=== PATIENT | female | born 1990 | race Caucasian/White ===

== ENCOUNTER 2024-07-27 21:25 | Emergency (ER) | payer MEDICAID, SELFPAY ==
--- NOTE | ~2024-07-27 | XR_ITS ---
CLINICAL HISTORY: cough, chest congestion 1 view chest x-ray Comparison: None Findings: No consolidation, pneumothorax, or pleural effusion. Borderline low lung volumes with minimal atelectasis Heart size is normal. No acute fracture. IMPRESSION: No consolidation This document has been electronically signed by: Sb Ramesh MD on 07/27/2024 23:26:48
[2024-07-27 21:56] VITALS: BP 123/80; PULSE 110; RESP 18; TEMP 37.3; BMI 26.5
[2024-07-27 22:18] LABS: Hematocrit 40.7 % (37.0-47.0); Hemoglobin 13.8 g/dl (12.0-16.0); Mean Corpuscular HGB Conc 33.9 g/dl (31.0-35.0); Mean Corpuscular Hemoglobin 28.7 pg (27.0-33.0); Mean Corpuscular Volume 84.6 fL (80.0-98.0); Mean Platelet Volume 10.4 fL (9.4-12.3); Platelet Count 228 X10*3/uL (160-400); Red Blood Count 4.81 X10*6/uL (4.20-5.50); Red Cell Distribution Width 13.2 % (11.0-16.0); White Blood Count 5.4 X10*3/uL (4.8-10.8)
[2024-07-27 22:46] LABS: Alanine Aminotransferase 42 U/L (0-31); Albumin Level 4.2 g/dL (3.5-5.0); Alkaline Phosphatase 72 U/L (39-117); Anion Gap 14 (12-20); Aspartate Amino Transferase 32 U/L (5-31); Bilirubin Total 0.4 mg/dL (0.0-1.0); Blood Urea Nitrogen 10 mg/dL (9-16); Carbon Dioxide 24 mmol/L (22-29); Chloride 102 mmol/L (96-108); Creatinine Clr Calc Pharmacy 77.5; Estimated Glomerular Filt Rate > 60; Glucose Random 85 mg/dL (60-115); Potassium 3.4 mmol/L (3.3-5.1); Sodium 137 mmol/L (135-145); Total Protein 8.2 g/dL (6.5-8.0)
[2024-07-27 22:54] LABS: Influenza A PCR NEGATIVE (Negative); Influenza B PCR POSITIVE (Negative); Resp Syncy Virus RNA Qual PCR NEGATIVE (Negative); SARS COV2 PCR INHOUSE NEGATIVE (Negative)
[2024-07-28 01:40] VITALS: BP 122/80; PULSE 113; RESP 18; TEMP 37.6; O2SAT 97
--- NOTE | 2024-07-28 03:42 | ED_ITS ---
HPI - URI/Sore Throat General Chief Complaint: Upper Respiratory Symptoms Stated Complaint: coughing/felt better yesterday/today worse Time Seen by Provider: 07/28/24 03:19 Source: patient Mode of arrival: ambulatory Limitations: no limitations History of Present Illness ED Provider: HPI Narrative: patient is complaining of nasal congestion sore throat body aches dry cough earache for last 2 days was seen at urgent care center tested negative for flu and COVID comes here staff as she is still feeling sick Related Data Previous Rx's ?Medication ?Instructions ?Recorded codeine 10 mg-guaifenesin 100 mg/5 10 ml PO Q6H PRN cough #237 mL 07/28/24 mL oral liquid Allergies Allergy/AdvReac Type Severity Reaction Status Date / Time No Known Allergies Allergy Verified 07/27/24 21:57 Review of Systems 2 Review of Systems: Yes all other systems are reviewed and are negative [facility] Social History Social History Advance Directives: No Advance Directives Information Provided: Yes Do you have a plan to hurt others: No Plan Physical Exam 2 Vital Signs: Vital Signs: Last Vital Signs Temp 99.7 F 07/28/24 04:27 Pulse 113 H 07/28/24 04:27 Resp 18 07/28/24 04:27 BP 122/80 07/28/24 04:27 Pulse Ox 97 07/28/24 04:27 O2 Del Method Room Air 07/28/24 04:27 BMI result Body Mass Index 26.5 Appearance: Alert. Oriented X3. No acute distress. frequent cough Eyes: no pallor or icterus ENT: Pharynx normal. Oral Mucosa moist Neck: Normal inspection. Neck supple. CVS: Normal heart rate and rhythm. Pulses normal. Respiratory: No respiratory distress. Equal air entry bilateral, no wheezing/rales/rhonchi Abd: soft, not tender Skin: Skin warm and dry. Normal skin color. Normal skin turgor. Extremities: No lower extremity edema, no calf tenderness Neuro: Oriented X 3. Medications Administered Discontinued Medications Generic Name Dose Route Start Last Admin Trade Name Freq PRN Reason Stop Dose Admin Guaifenesin/Codeine Phosphate 10 ml 07/28/24 03:42 07/28/24 03:55 Guaifen/Codeine Sf 200/20/10ml 10 Ml Liquid PO 10 ml Q6H PRN Administration Cough Medical Decision Making Medical Decision Making MDM Narrative: patient's influenza B chest x-ray labs are stable advised supportive treatment Lab Data [facility] Lab Attestation statement: I reviewed the patient's lab results. 07/27/24 22:11 07/27/24 22:11 Labs: Lab Results 07/27/24 07/27/24 Range/Units 02:14 22:11 WBC 5.4 (4.8-10.8) X10*3/uL RBC 4.81 (4.20-5.50) X10*6/uL Hgb 13.8 (12.0-16.0) g/dl Hct 40.7 (37.0-47.0) % MCV 84.6 (80.0-98.0) fL MCH 28.7 (27.0-33.0) pg MCHC 33.9 (31.0-35.0) g/dl RDW 13.2 (11.0-16.0) % Plt Count 228 (160-400) X10*3/uL MPV 10.4 (9.4-12.3) fL Absolute Nucleated RBC 0.000 (0.0-0.012) X10*3/uL Nucleated RBC % (auto) 0.0 (0.0-0.2) /100WBC Sodium 137 (135-145) mmol/L Potassium 3.4 (3.3-5.1) mmol/L Chloride 102 (96-108) mmol/L Carbon Dioxide 24 (22-29) mmol/L Anion Gap 14 (12-20) BUN 10 (9-16) mg/dL Creatinine 0.89 (0.5-1.4) mg/dL Estim Creat Clear Calc 77.5 Estimated GFR > 60 Random Glucose 85 (60-115) mg/dL Calcium 9.0 (8.4-10.2) mg/dL Total Bilirubin 0.4 (0.0-1.0) mg/dL AST 32 H (5-31) U/L ALT 42 H (0-31) U/L Alkaline Phosphatase 72 (39-117) U/L Total Protein 8.2 H (6.5-8.0) g/dL Albumin 4.2 (3.5-5.0) g/dL Influenza Type A (PCR) NEGATIVE (Negative) Influenza Type B (PCR) POSITIVE A (Negative) RSV RNA Qual (PCR) NEGATIVE (Negative) SARS-CoV-2 RNA (RT-PCR) NEGATIVE (Negative) Discharge Plan Discharge Clinical Impression: Influenza Patient Disposition: Home, Self-Care Instructions: Influenza (ED) Additional Instructions: You have influenza B Drink plenty of fluids Tylenol/Motrin for fever and pain Cough syrup as prescribed Take your inhaler/nebulizer as needed for wheezing Prescriptions: New codeine-guaifenesin 10-100 mg/5 mL liquid 10 ml PO Q6H PRN (Reason: cough) Qty: 237 0RF Interventions: ED Discharge Assessment Last Done: 07/28/24 04:27 Discharge Date/Time: 07/28/24 04:30 Print Language: Bulgarian
[2024-07-28] MEDS: guaiFEN/Codeine SF 200/20/10ML 10 ML LIQUID PO (03:55)
[2024-07-28 04:27] VITALS: BP 122/80; PULSE 113; RESP 18; TEMP 37.6; O2SAT 97
== END 2024-07-28 04:30 | disposition home or self-care (01) ==
PROVIDERS: Emergency Provider Internal Medicine
DX: J10.1 Influenza due to other identified influenza virus with other respiratory manifestations (principal); R05.9 Cough, unspecified; R09.81 Nasal congestion; Z03.818 Encounter for observation for suspected exposure to other biological agents ruled out
CPT/HCPCS: 0241U; 36415; 71045; 80053; 85027; 99283

== ENCOUNTER → 2024-07-27 22:06 | Outpatient (BNV) | payer MEDICAID, SELFPAY | PROVIDERS: Visit Provider Radiology Neuroradiology | DX: R07.89 Other chest pain (principal); R05.9 Cough, unspecified | CPT/HCPCS: 71045 ==

== ENCOUNTER 2024-11-01 09:36 | Emergency (ER) | payer MEDICAID, SELFPAY ==
--- NOTE | ~2024-11-01 | CT_ITS ---
EXAMINATION: CT ABDOMEN AND PELVIS WITH CONTRAST CLINICAL INFORMATION: Right lower quadrant pain COMPARISON: None available. TECHNIQUE: Multidetector volumetric images were obtained from the superior aspect of the liver through the pubic symphysis following administration 85 mL of Omnipaque 350 intravenous contrast. Sagittal and coronal reformatted images were obtained on the technologist's workstation. Oral contrast: No This CT examination was performed using dose optimization techniques as appropriate, variously including the following: *Automated exposure control *Adjustment of mA and/or kV according to patient size (this includes techniques or standardized protocols for targeted exams where dose is matched to indication/reason for exam; i.e. extremities or head) *Use of iterative reconstruction technique DLP: 497 mGY*cm FINDINGS: LUNG BASES: The visualized lung bases are unremarkable. LIVER, GALLBLADDER, AND BILIARY TREE: Mild diffuse fatty changes are present in the liver. The gallbladder is unremarkable with no evidence of radiopaque gallstones, gallbladder wall thickening, or obvious pericholecystic inflammatory changes. PANCREAS: Unremarkable. SPLEEN: Unremarkable. ADRENAL GLANDS: Unremarkable. KIDNEYS AND URETERS: The kidneys are normal in size, shape, and attenuation. No hydronephrosis, hydroureter, or calculi seen. No perinephric stranding. BLADDER: Unremarkable. GASTROINTESTINAL TRACT: Anterior to the superior margin of the transverse colon, just right of midline, there is a 2 cm oval fat density with central intermediate density and peripheral fat stranding consistent with a torsed epiploic appendage. The appendix is within normal limits. Degenerative tract is otherwise unremarkable. ABDOMINAL WALL: There is laxity of linea alba at the umbilicus with outward convexity of the mesentery. LYMPH NODES: Normal. VASCULAR: Unremarkable. PELVIC VISCERA: There is, follicle in the right ovary. Left ovary and uterus are unremarkable. OSSEOUS STRUCTURES: Unremarkable. CT/CT abdomen pelvis w IV con IMPRESSION: Torsed epiploic appendage of the transverse colon, just right of midline. Fleischner guidelines were followed. Electronically signed by: Kendrick Coleman MD 11/01/2024 12:26 PM EDT
[2024-11-01 10:02] VITALS: PULSE 93; RESP 16; TEMP 36.3; O2SAT 95; BMI 32.1
--- NOTE | 2024-11-01 10:04 | ED_ITS ---
HPI - Abdominal Pain General Chief Complaint: Abdominal Pain Stated Complaint: Sharp pain R side Time Seen by Provider: 11/01/24 10:59 Source: patient Mode of arrival: ambulatory Limitations: no limitations History of Present Illness ED Provider: CRISTINA WHITAKER PA-C HPI narrative: 34-year-old female presents to the ED today for evaluation of abdominal pain x2 days, worsening over the last 12 hours. Reports pain originates around umbilicus and radiates to right lower quadrant. Admits pain was worse on the drive over to the ED while hitting potholes. She reports associated decreased appetite, headache, and nausea without vomiting. Denies any diarrhea. Reports she has not had a bowel movement in about 2 days. Still passing flatus. Denies any history of abdominal surgeries. LMP 10/20/24, denies chance of . Denies fever, chills, flank pain, urinary symptoms. vaginal discharge or bleeding. Related Data Previous Rx's ?Medication ?Instructions ?Recorded codeine 10 mg-guaifenesin 100 mg/5 10 ml PO Q6H PRN cough #237 mL 07/28/24 mL oral liquid ondansetron 4 mg disintegrating 4 mg PO DAILY PRN nausea and 11/01/24 tablet vomiting 5 days #7 tabs oxycodone 5 mg tablet 5 mg PO Q8H PRN pain (scale score 11/01/24 7-10) 3 days #9 tabs Allergies Allergy/AdvReac Type Severity Reaction Status Date / Time No Known Allergies Allergy Verified 11/01/24 10:03 Review of Systems Review of Systems Constitutional: No fever, chills, fatigue, night sweats, weight changes ENT/Mouth: No ear pain, hearing loss, nasal congestion, sinus pain, rhinorrhea, sore throat Eyes: No eye pain, swelling, redness, vision changes, discharge Cardio: No chest pain, palpitations, HARKINS, orthopnea, peripheral edema Pulm: No SOB, cough, sputum, wheezing, dyspnea, hemoptysis GI: No vomiting, hematemesis, diarrhea, constipation, hematochezia, melena, +abd pain, +nausea : No irregular bleeding, dysuria, frequency, urgency, hesitancy, hematuria, flank pain, urinary flow changes, urinary incontinence or retention MSK: No back pain, neck pain, joint pain, myalgias Skin: No lesions, rashes Neuro: No weakness, numbness, paresthesias, LOC, dizziness, headache Psych: No anxiety/panic, depression, SI/HI, AH/VH All other systems reviewed and are negative. [facility] Past Medical History Attestation statement: The following information was validated with the patient. Source: old records reviewed and nursing notes reviewed Social History Social History Smoked in Last 30 Days: No Advance Directives: Yes Advance Directives Information Provided: Yes Advance Directives on File: No Do you have a plan to hurt others: No Plan Physical Exam ED Vital Signs: Vital Signs - 24 hr 11/01/24 10:02 11/01/24 11:03 11/01/24 14:00 Temperature 97.4 F 98.6 F Pulse Rate 93 73 68 Respiratory Rate 16 18 16 Blood Pressure 105/76 90/55 L Pulse Oximetry 95 99 99 Oxygen Delivery Method Room Air Room Air Room Air 11/01/24 14:46 Temperature 98.6 F Pulse Rate 68 Respiratory Rate 16 Blood Pressure 90/55 L Pulse Oximetry 99 Oxygen Delivery Method Room Air BMI result Body Mass Index 32.1 Vital signs stable, afebrile General: Uncomfortable, ill-appearing. Hesitant to sit down due to pain Skin: Warm, dry, intact. No rashes or lesions. Head: Normocephalic, atraumatic. EENT: Hearing is intact b/l. Conjunctiva clear. PERRLA. EOM intact. Moist mucous membranes.? Neck: Supple without LAD. FROM. Trachea midline.? Cardiac: Chest wall symmetric. RRR Lungs: Normal respiratory effort without accessory muscle use. CTA bilaterally. No rales, rhonchi, or wheezes.? Abdomen: soft, mildly distended, tender to palpation primarily to right lower quadrant with minimal guarding, no rebound tenderness. active bs. Back: No midline spinous or paraspinal tenderness. No step off deformity. Ext: Upper and lower extremities atraumatic, without tenderness, deformity, swelling or erythema Neuro: AOx3. Normal speech. Ambulating with steady gait. Course Course Course Narrative: 1145 -- CBC without leukocytosis or left shift. No anemia. H&H stable. Chemistry without acute electrolyte abnormality requiring intervention. No KAUSHAL. Liver function around baseline. CRP elevated to 2.22. Beta quant undetectable - not . Urinalysis pending. > CT abdomen/pelvis pending > medicated with morphine, Zofran and 1L of IV fluids 1430 -- CT abdomen/pelvis showing anterior to the superior margin of the transverse colon, just right to the midline, there is a 2 cm oval fat density with central intermediate density and peripheral fat stranding consistent with torso epiploic appendage. The appendix is normal. Pelvis unremarkable. Gallbladder unremarkable. Kidneys normal. > I spoke with general surgeon Dr. Bullard. No surgical intervention warranted. Recommending pain management with outpatient follow-up. Discussed all workup results with patient. She reports improvement in symptoms after receiving pain control. She feels discharge with pain control is reasonable. Will provide referral to General surgery, advised to follow up outpatient. Patient has remained stable throughout ED visit today. Discussed worrisome signs and symptoms and when to return to the ED. All questions answered at this time. Patient is agreeable with disposition and stable for discharge. Medical Decision Making Medical Decision Making [facility] Narrative: 34-year-old female presents to the ED today for evaluation of abdominal pain x2 days, worsening over the last 12 hours. Vital signs stable, afebrile. Patient is obviously uncomfortable, appears pale, diaphoretic. Abdomen is soft, mildly distended, tender to palpation primarily to right lower quadrant with minimal guarding, no rebound. Active bowel sounds x4. no cvat. Differential diagnoses: appendicitis, diverticulitis, diverticulosis, UTI, IUP, constipation Abdominal exam without peritoneal signs. No evidence of acute abdomen at this time. Well appearing. Low suspicion for acute hepatobiliary disease (including acute cholecystitis), acute infectious processes (pneumonia, hepatitis, pyelonephritis, PID, TOA), vascular catastrophe, bowel obstruction or viscus perforation, ovarian cyst/ rupture/ torsion. Presentation not consistent with other acute, emergent causes of abdominal pain at this time. Plan: labs, UA, CT AP, pain control, fluids, serial reassessment Differential Diagnosis Differential Diagnoses: The differential diagnosis associated with the presentation includes as above. Admission/Observation Not indicated Consult Healthcare Provider Management of the patient was discussed with: Claims Consultant (general surgeon - dr. bullard) Lab Data [facility] Lab Attestation statement: I reviewed the patient's lab results. as above. 11/01/24 10:35 11/01/24 10:35 Labs: Lab Results 11/01/24 11/01/24 11/01/24 Range/Units 10:35 11:41 14:07 WBC 9.5 (4.8-10.8) X10*3/uL RBC 4.86 (4.20-5.50) X10*6/uL Hgb 13.8 (12.0-16.0) g/dl Hct 42.2 (37.0-47.0) % MCV 86.8 (80.0-98.0) fL MCH 28.4 (27.0-33.0) pg MCHC 32.7 (31.0-35.0) g/dl RDW 13.2 (11.0-16.0) % Plt Count 271 (160-400) X10*3/uL MPV 11.0 (9.4-12.3) fL Immature Gran % (Auto) 0.4 (0.0-0.4) % Neut % (Auto) 71.2 (45-73) % Lymph % (Auto) 20.1 (20-40) % Bonner % (Auto) 6.8 (2-11) % Eos % (Auto) 1.2 (0-4) % Baso % (Auto) 0.3 (0-2) % Lymph # (Auto) 1.9 (1.2-4.9) X10*3/uL Bonner # (Auto) 0.6 (0.1-1.2) X10*3/uL Eos # (Auto) 0.1 (0.0-0.4) X10*3/uL Baso # (Auto) 0.0 (0.0-0.2) X10*3/uL Abs Immat Gran (auto) 0.04 H (0.00-0.03) X10*3/uL Absolute Neuts (auto) 6.7 (2.0-8.3) x10*3/uL Absolute Nucleated RBC 0.000 (0.0-0.012) X10*3/uL Nucleated RBC % (auto) 0.0 (0.0-0.2) /100WBC Sodium 136 (135-145) mmol/L Potassium 4.0 (3.3-5.1) mmol/L Chloride 104 (96-108) mmol/L Carbon Dioxide 27 (22-29) mmol/L Anion Gap 9 L (12-20) BUN 14 (9-16) mg/dL Creatinine 0.89 (0.5-1.4) mg/dL Estim Creat Clear Calc 84.4 Estimated GFR > 60 Random Glucose 93 (60-115) mg/dL Lactic Acid 0.7 (0.5-2.0) mmol/L Calcium 9.3 (8.4-10.2) mg/dL Magnesium 2.2 (1.6-2.6) mg/dL Total Bilirubin 0.6 (0.0-1.0) mg/dL AST 21 (5-31) U/L ALT 38 H (0-31) U/L Alkaline Phosphatase 76 (39-117) U/L C-Reactive Protein 2.22 H (< or = 0.50) mg/dL Total Protein 7.6 (6.5-8.0) g/dL Albumin 4.5 (3.5-5.0) g/dL Lipase 15 (8-78) U/L Beta HCG, Quant < 2 mIU/mL Urine Color Yellow Urine Appearance Clear Urine pH 8.0 (5.0-9.0) Ur Specific Spicer >= 1.030 H (1.005-1.025) Urine Protein Negative (Neg-Trace) mg/dL Urine Glucose (UA) Negative (Negative) mg/dL Urine Ketones Negative (Negative) mg/dL Urine Blood Negative (Negative) Urine Nitrite Negative (Negative) Ur Leukocyte Esterase Negative (Negative) Independent Interpretation I performed an independent interpretation of an: CT Scan Interpretation: ct a /p without bowel obstruction Radiology Impression Discussion of test interpretation with radiology: I have reviewed the radiologist's reading. Radiologist Impression: Procedure(s): CT abdomen pelvis w IV con Accession Number(s): [id number] cc: [facility]; Cristina Whitaker~ Report Number: [id number]: Total DLP = 497.00 mGy-cm EXAMINATION: CT ABDOMEN AND PELVIS WITH CONTRAST CLINICAL INFORMATION: Right lower quadrant pain COMPARISON: None available. TECHNIQUE: Multidetector volumetric images were obtained from the superior aspect of the liver through the pubic symphysis following administration 85 mL of Omnipaque 350 intravenous contrast. Sagittal and coronal reformatted images were obtained on the technologist's workstation. Oral contrast: No This CT examination was performed using dose optimization techniques as appropriate, variously including the following: *Automated exposure control *Adjustment of mA and/or kV according to patient size (this includes techniques or standardized protocols for targeted exams where dose is matched to indication/reason for exam; i.e. extremities or head) *Use of iterative reconstruction technique DLP: 497 mGY*cm FINDINGS: LUNG BASES: The visualized lung bases are unremarkable. LIVER, GALLBLADDER, AND BILIARY TREE: Mild diffuse fatty changes are present in the liver. The gallbladder is unremarkable with no evidence of radiopaque gallstones, gallbladder wall thickening, or obvious pericholecystic inflammatory changes. PANCREAS: Unremarkable. SPLEEN: Unremarkable. ADRENAL GLANDS: Unremarkable. KIDNEYS AND URETERS: The kidneys are normal in size, shape, and attenuation. No hydronephrosis, hydroureter, or calculi seen. No perinephric stranding. BLADDER: Unremarkable. GASTROINTESTINAL TRACT: Anterior to the superior margin of the transverse colon, just right of midline, there is a 2 cm oval fat density with central intermediate density and peripheral fat stranding consistent with a torsed epiploic appendage. The appendix is within normal limits. Degenerative tract is otherwise unremarkable. ABDOMINAL WALL: There is laxity of linea alba at the umbilicus with outward convexity of the mesentery. LYMPH NODES: Normal. VASCULAR: Unremarkable. PELVIC VISCERA: There is, follicle in the right ovary. Left ovary and uterus are unremarkable. OSSEOUS STRUCTURES: Unremarkable. CT/CT abdomen pelvis w IV con IMPRESSION: Torsed epiploic appendage of the transverse colon, just right of midline. Fleischner guidelines were followed. Electronically signed by: Kendrick Coleman MD 11/01/2024 12:26 PM EDT Prescription Management I considered prescription management with: Pain Medication Social Determinants Patient?s care significantly limited by Social Determinants of Health including: Other Social Determinant of Health Medications Administered Discontinued Medications Generic Name Dose Route Start Last Admin Trade Name Freq PRN Reason Stop Dose Admin Sodium Chloride 1,000 mls @ 999 mls/hr 11/01/24 11:30 11/01/24 12:45 Ns IV 11/01/24 12:30 Infused .Q1H1M VALERIE Infusion Iohexol 100 ml 11/01/24 12:10 11/01/24 12:10 Iohexol 350 Mg/Ml 100 Ml Infus..Btl IV 11/01/24 12:11 85 ml ONCE ONE Administration Morphine Sulfate 4 mg 11/01/24 11:16 11/01/24 11:44 Morphine Sulfate 4 Mg/Ml Cartridge IVPUSH 11/01/24 11:17 4 mg ONCE ONE Administration Protocol Ondansetron HCl 4 mg 11/01/24 11:16 11/01/24 11:44 Ondansetron Hcl 4 Mg/2 Ml Vial IVPUSH 11/01/24 11:17 4 mg ONCE ONE Administration Critical Care Time Critical Care Time Critical Care Time: Yes Total Critical Care Time: 32 Attestation: Critical care time in the amount of 32 minutes has been provided to the patient in terms of direct patient care, frequent reevaluation on IV morphine, consultation with general surgery, review and interpretation of medical data and results, and management of potentially life-threatening conditions. This is all outside of any medical procedures. Discharge Plan Discharge Clinical Impression: Torsion of appendix epiploicae Patient Disposition: Home, Self-Care Instructions: Acute Nausea and Vomiting (ED) Additional Instructions: You were evaluated in the ED today for abdominal pain. Your blood work is reassuring. Your urine is negative for infection. As discussed, the CT scan of your abdomen shows a twisted region of fat along your colon. Your appendix is normal. No other pathologic findings on CT scan. We discuss this finding with our surgical team. There is no surgical intervention warranted at this time. Management consists of pain management and outpatient follow up. I recommend you take 600mg ibuprofen every 6 hours or Tylenol 650mg every 6 hours as needed for pain. If needed, you can alternate these medications so that you take one medication every 3 hours. For example, at noon take ibuprofen, then at 3pm take Tylenol, then at 6pm take ibuprofen. I am sending oxycodone, a controlled pain medication, to your pharmacy for you to take for breakthrough pain control. Please use this with caution as opioid pain medications have addictive properties. Opioid pain medications can often cause constipation. I recommend taking this with an over the counter laxative and/or stool softener to help move your bowels. Follow up with general surgery outpatient. I have provided you with a referral. Call them to establish care. They will not call you. Return with any new or worsening symptoms. In the case of an emergency call 911. Prescriptions: New ondansetron 4 mg tablet,disintegrating 4 mg PO DAILY PRN (Reason: nausea and vomiting) 5 Days Qty: 7 0RF oxycodone 5 mg tablet 5 mg PO Q8H PRN (Reason: pain (scale score 7-10)) 3 Days Qty: 9 0RF Rx Instructions: Partial Fill upon patient request. No Action codeine-guaifenesin 10-100 mg/5 mL liquid 10 ml PO Q6H PRN (Reason: cough) Qty: 237 0RF Ref[place]: [facility] [place]Provider Group] - None (Torsed epiploic appendage of the transverse colon, just right of midline. ) [facility] [Primary Care Provider] - Stand Alone Forms: Work/School Release Interventions: ED Discharge Assessment Last Done: 11/01/24 14:46 Discharge Date/Time: 11/01/24 14:48 Print Language: Slovak
[2024-11-01 10:50] LABS: MANUAL DIFF FLAG NO
[2024-11-01 11:00] LABS: Basophils Percent Auto 0.3 % (0-2); Eosinophils Absolute Auto 0.1 X10*3/uL (0.0-0.4); Eosinophils Percent Auto 1.2 % (0-4); Hematocrit 42.2 % (37.0-47.0); Hemoglobin 13.8 g/dl (12.0-16.0); Imm Gran Abs Auto 0.04 X10*3/uL (0.00-0.03); Imm Gran Pct Auto 0.4 % (0.0-0.4); Lymphocytes Absolute Auto 1.9 X10*3/uL (1.2-4.9); Lymphocytes Percent Auto 20.1 % (20-40); Mean Corpuscular HGB Conc 32.7 g/dl (31.0-35.0); Mean Corpuscular Hemoglobin 28.4 pg (27.0-33.0); Mean Corpuscular Volume 86.8 fL (80.0-98.0); Monocytes Absolute Auto 0.6 X10*3/uL (0.1-1.2); Monocytes Percent Auto 6.8 % (2-11); Neutrophils Absolute Auto 6.7 x10*3/uL (2.0-8.3); Neutrophils Percent Auto 71.2 % (45-73); Platelet Count 271 X10*3/uL (160-400); Red Blood Count 4.86 X10*6/uL (4.20-5.50); Red Cell Distribution Width 13.2 % (11.0-16.0); White Blood Count 9.5 X10*3/uL (4.8-10.8)
[2024-11-01 11:03] VITALS: BP 105/76; PULSE 73; RESP 18; O2SAT 99
[2024-11-01 11:07] LABS: Alanine Aminotransferase 38 U/L (0-31); Albumin Level 4.5 g/dL (3.5-5.0); Alkaline Phosphatase 76 U/L (39-117); Anion Gap 9 (12-20); Aspartate Amino Transferase 21 U/L (5-31); Bilirubin Total 0.6 mg/dL (0.0-1.0); Blood Urea Nitrogen 14 mg/dL (9-16); C Reactive Protein 2.22 mg/dL (< or = 0.50); Calcium 9.3 mg/dL (8.4-10.2); Carbon Dioxide 27 mmol/L (22-29); Chloride 104 mmol/L (96-108); Creatinine Clr Calc Pharmacy 84.4; Estimated Glomerular Filt Rate > 60; Glucose Random 93 mg/dL (60-115); Lipase 15 U/L (8-78); Magnesium 2.2 mg/dL (1.6-2.6); Sodium 136 mmol/L (135-145); Total Protein 7.6 g/dL (6.5-8.0)
--- NOTE | 2024-11-01 11:18 | PC.NURSE ---
Patient presents with epigastric pain radiating to the RUQ for the past several days with assoc constipation and nausea. Lungs clear bilat. Respirations even and non-labored. Abdomen sl firm with positive bowel sounds. RUQ tenderness noted. Positive pedal pulses with no edema.
[2024-11-01 11:21] LABS: HCG Quantitative < 2 mIU/mL
[2024-11-01] MEDS: 0.9 % Sodium Chloride 1,000 ML 999 ML IV (11:44)
[2024-11-01] MEDS: Morphine Sulfate 4 MG/ML CARTRIDGE IVPUSH (11:44)
[2024-11-01] MEDS: ondansetron HCL 4 MG/2 ML VIAL IVPUSH (11:44)
[2024-11-01 12:04] LABS: Lactic Acid 0.7 mmol/L (0.5-2.0)
[2024-11-01] MEDS: iohexoL 350 MG/ML 100 ML INFUS..BTL IV (12:10)
--- OUTSIDE RECORDS SUMMARY | 2024-11-01 12:13 | XMS_ITS | Clinical Summary ---
Author Organization [facility] Address [address] [place] [address] Care Team Providers Care Recreation Leader Name Role Phone Unavailable Primary Care Provider Unavailabl e Social History Tobacco Use Types Packs/Day Years Used Date Smoking Tobacco: Never Assessed Comments Unknown Sex and Gender Information Value Date Recorded Sex Assigned at Not on file Legal Sex Female 1:33 AM EST Gender Identity Not on file Sexual Orientation Not on file Plan of Treatment Health Maintenance Due Date Last Done Comments DTaP,Tdap,and Td Vaccines (1 - Tdap) 10/22/2010 Hepatitis B Vaccines (1 of 3 - 19+ 3-dose series) 10/22/2010 Cervical Cancer Screening: P ap Smear 10/22/2012 Depression Screening 06/20/2023 HIV Screening 06/20/2023 Hepatitis C Screening 06/20/2023 Social Influencers of Health Screening 06/20/2023 COVID-19 Vaccine (2023-2 5 season) 2024 Influenza Vaccine (Season Ended) 2025 HIB Vaccines Aged Out No longer eligi ble based on patient's age to complete this topic HPV Vaccines Aged Out No longer eligi ble based on patient's age to complete this topic Hepatitis A Vaccines Aged Out No long er eligible based on patient's age to complete this topic IPV Vaccines Aged Out No longer eligi ble based on patient's age to complete this topic MMR Vaccines Aged Out No longer eligi ble based on patient's age to complete this topic Meningococcal ACWY Vaccine Aged Out N o longer eligible based on patient's age to complete this topic Meningococcal B Vaccine Aged Out No l onger eligible based on patient's age to complete this topic Pneumococcal Vaccine: Pediat rics (0 to 5 Years) and At-Risk Patients (6 to 64 Years) Aged Out No longer eligible b ased on patient's age to complete this topic RSV Immunization Patients Un primo 20 months Aged Out No longer eligible b ased on patient's age to complete this topic Varicella Vaccines Aged Out No longer eligible based on patient's age to complete this topic
[2024-11-01 14:00] VITALS: BP 90/55; PULSE 68; RESP 16; TEMP 37; O2SAT 99
[2024-11-01 14:12] LABS: Appearance Urine Clear; Color Urine Yellow; Glucose Urine UA Negative (Negative); Leukocyte Esterase Urine Negative (Negative); Nitrite Urine Negative (Negative); Specific Gravity - Urine >= 1.030 (1.005-1.025); Urine Blood Negative (Negative); Urine Ketones Negative (Negative); Urine Protein Negative (Neg-Trace)
[2024-11-01 14:46] VITALS: BP 90/55; PULSE 68; RESP 16; TEMP 37; O2SAT 99
== END 2024-11-01 14:48 | disposition home or self-care (01) ==
PROVIDERS: Physician Assistant Medical; Emergency Provider Emergency Medicine; PCP Dentist General Practice
DX: K55.069 Acute infarction of intestine, part and extent unspecified (principal); R10.31 Right lower quadrant pain
CPT/HCPCS: 36415; 74177; 80053; 81003; 83605; 83690; 83735; 84702; 85025; 86140; 87040; 96361; 96374; 96375; 99285; J2270; J2405; Q9967

== ENCOUNTER → 2024-11-01 10:59 | Outpatient (BNV) | payer MEDICAID, SELFPAY | PROVIDERS: Emergency Provider Emergency Medicine; PCP Dentist General Practice; Visit Provider Radiology Diagnostic Radiology | DX: K56.2 Volvulus (principal) | CPT/HCPCS: 74177 ==